=== PATIENT | male | born 1945 | race Caucasian/White ===

== ENCOUNTER 2016-05-23 13:54 | Emergency (ER) | payer OTHER ==
[~2016-05-23] VITALS: Ht 182.9 cm; Wt 118.3 kg
[~2016-05-23 13:54] MED LIST: AMLO-110 PO; ASPI81TA28 PO; CARV25TA2 PO; EFF/375 PO; FURO20TA PO; HYT2 PO; LISI-725 PO; POTA20PO5 PO; ZNTT/150 PO; [UNRECOGNIZED DRUG - CODE] PO; [UNRECOGNIZED DRUG - REMARK] PO
[2016-05-23 14:10] VITALS: TEMP 36.8; Ht 182.9 cm; Wt 118.3 kg
--- NOTE | 2016-05-23 14:25 | EMERGENCY ROOM VISIT NOTE ---
History Report prepared by Vee: Wilda Vergara Under the Supervision of: Dr. Alan Puga M.D. First contact with patient: 14:14 Chief Complaint: BACK PAIN Stated Complaint: BACK PAIN-UNABLE TO STAND STRAIGHT History of Present Illness The patient is a 70 year old male who presents to the Emergency Room with complaints of constant back pain beginning last night. The patient states that he was bending down getting his clothes out of the dryer when he felt a popping sensation in his back. The patient states that the pain radiates down into his legs. He has been taking Hydrocodone for the pain. He has a history of herniated discs and is followed by pain management. The patient denies loss of bowel or bladder function. Source of History: patient Onset: last night Position: back Timing: constant Modifying Factors (Relieving): other (Hydrocodone) Note: Patient denies loss of bowel or bladder control. He has a history of herniated disc. Review of Systems See HPI for pertinent positives & negatives. A total of 10 systems reviewed and were otherwise negative. Past Medical & Surgical Medical Problems: (1) Herniated disc Surgical Problems: (1) S/P triple vessel bypass Social History Smoking Status: Never Smoker Marital Status: Housing Status: lives with significant other Occupation Status: retired Current/Historical Medications Scheduled Amlodipine (Norvasc), 5 MG PO DAILY Aspirin (Aspirin Ec), 81 MG PO BID Carvedilol (Coreg), 25 MG PO BID Furosemide (Lasix), 40 MG PO BID Gabapentin (Neurontin), 200 MG PO QAM Gabapentin (Neurontin), 1 CAP PO HS Gabapentin (Neurontin), 200 MG PO NOON Lisinopril (Prinivil), 10 MG PO BID Potassium Ext Rel (Klor-Con), 20 MEQ PO DAILY Ranitidine (Zantac), 150 MG PO BID Terazosin HCl (Terazosin HCl), 4 MG PO HS Zolpidem Tartrate (Ambien), 5 MG PO HS [Breathing Pill], 5 MG PO QAM Scheduled PRN Oxycodone/Acetaminophen 5MG/325MG (Percocet 5MG/325MG), 1-2 TAB PO Q4H PRN for Pain Allergies Coded Allergies: No Known Allergies (Unverified , 05/23/16) Physical Exam Vital Signs Date Time Temp Pulse Resp B/P Pulse Ox O2 Delivery O2 Flow Rate FiO2 05/23/16 17:07 72 18 127/78 97 Room Air 05/23/16 16:00 69 18 130/76 96 Room Air 05/23/16 14:10 36.8 72 18 124/76 94 Room Air Physical Exam GENERAL: Patient is a healthy-appearing well-nourished HEAD: Normocephalic atraumatic EYES: Ocular movements intact pupils equal and react to light OROPHARYNX mucous membranes are moist no exudates present no erythema or edema present NECK: Supple no nuchal rigidity CHEST: Good equal expansion LUNGS: Clear and equal to auscultation CARDIAC: Normal S1 and S2 ABDOMEN: Soft nontender no guarding BACK: No CVA tenderness EXTREMITIES: No pain upon palpation normal muscle strength in all groups no clubbing cyanosis or edema. Unable to walk on tip toes or heels. NEURO: Patient is following commands is answering questions appropriately. Alert and oriented x3 Cranial Nerves 2-12 grossly intact. No saddle anesthesia, no loss of bowel or bladder control. Medical Decision & Procedures ER Provider Diagnostic Interpretation: MRI results as stated below per my review and radiologist interpretation: MRI OF THE LUMBAR SPINE WITHOUT CONTRAST CLINICAL HISTORY: Low back pain. COMPARISON STUDY: No previous studies for comparison. TECHNIQUE: Utilizing a 1.5 Tomasa magnet and dedicated coil, multiplanar, multiecho imaging of the lumbar spine was performed without IV contrast. FINDINGS: For purposes of numbering on this exam, the L5-S1 disc space is assigned to axial image 23 of 25. There is 6 mm of anterolisthesis of L3 on L4. There is no intracanalicular mass or fluid collection. The conus terminates at the mid L1 level. There are several T2 hyperintense bilateral renal lesions, the largest of which is a 6.5 cm right renal lesion. These are suboptimally assessed on this exam but may reflect cysts. L1-2: The central canal and neural foramen are patent. L2-3: The central canal and neural foramen are patent. L3-4: There is grade I anterolisthesis. There is a moderate-sized central disc protrusion. Ligamentous hypertrophy and facet arthrosis are present. These findings result in severe narrowing of the central canal and left lateral recess with mild narrowing of the right lateral recess and both neural foramen. L4-5: The central canal and neural foramen are patent L5-S1: There is a tiny central disc protrusion. The central canal and neural foramen are patent. IMPRESSION: 1. Severe central canal stenosis at L3-L4 due to a central disc protrusion, ligamentous hypertrophy and facet arthrosis. This disc herniation may be acute and likely accounts for the patient's pain. 2. Otherwise, mild multilevel degenerative changes of the lumbar spine. 3. Grade I anterolisthesis of L3 on L4, likely due to facet arthrosis. 4. Multiple bilateral renal lesions which are suboptimally assessed on this exam but may reflect cysts. Electronically signed by: Reji Mooney M.D. 05/23/2016 4:37 PM Dictated Date/Time: 05/23/2016 4:31 PM Medications Administered Medications (Trade) Dose Ordered Sig/Madhu Route Start Time Stop Time Status Last Admin Dose Admin Oxycodone/ Acetaminophen (Percocet 5/ 325MG Home Pack) 1 homepack UD STAT PO 05/23/16 16:58 05/23/16 16:59 DC 05/23/16 17:06 1 HOMEPACK ED Course 1419: Past medical records reviewed. The patient was evaluated in room B12. A complete history and physical examination was performed. 1643: I discussed MRI results with the patient. 1658: Percocet 5/325 MG Home Pack 1 homepack PO. 1700: Upon reexamination the patient is hemodynamically stable. I discussed results and treatment plan with the patient. He verbalizes agreement and understanding. The patient is ready for discharge. Medical Decision The patient is a 70 year old female who presents to the ED with complaints of back pain. Differential diagnosis: Etiologies such as musculoskeletal, disc herniation, fracture, aortic disease, metastatic disease, cord compression, discitis, infection, renal colic, gastrointestinal, acute exacerbation of chronic back pain, sciatica, cauda equina, as well as others were entertained. This is a 70-year-old male who presents emergency department complaining of back pain. Patient is refusing pain medication in the emergency department. He is able to walk on his tiptoes and his heels. He has no evidence saddle anesthesia on exam and he has no loss of bowel or bladder control. Based on the mechanism of action, the patient was sent for an MRI of his back. This is concerning for herniated disc. I believe based on the fact the patient is refusing pain medication as well as neurological exam as documented above that he can safely be discharged home. He is requesting Percocet for use at home. I did recommend that the patient returns to emergency department if he loses control of bowel or bladder also weakness.. Patient will follow-up with orthopedics and was in agreement with the treatment plan. Impression Primary Impression: Herniated disc Scribe Attestation The scribe's documentation has been prepared under my direction and personally reviewed by me in its entirety. I confirm that the note above accurately reflects all work, treatment, procedures, and medical decision making performed by me. Departure Information Dispostion Home / Self-Care Prescriptions Oxycodone/Acetaminophen 5MG/325MG (PERCOCET 5MG/325MG) Tab 1-2 TAB PO Q4H Y for Pain, #14 TAB Prov: Alan Puga MD 05/23/16 Referrals Piter Mckinley D.O. (PCP) Forms HOME CARE DOCUMENTATION FORM, IMPORTANT VISIT INFORMATION, School Instructions, Work Instructions Patient Instructions ED Disk Intervertebral Herniated, ED Neck Back Pain General, My [facility] Additional Instructions Need to return to the ED if you lose control of your bowel or bladder or are unable to walk. Follow up with DR Trejo's office this week You have been examined and treated today on an emergency basis only. This is not a substitute for, or an effort to provide, complete comprehensive medical care. It is impossible to recognize and treat all injuries or illnesses in a single emergency department visit. It is therefore important that you follow up closely with Dr Spain. Call as soon as possible for an appointment. Thank you for your time and consideration. I look forward to speaking with you again soon. Please don't hesitate to call us if you have any questions. Problem Qualifiers Primary Impression: Herniated disc Spinal region: thoracic Qualified Codes: M51.24 - Other intervertebral disc displacement, thoracic region
[2016-05-23] MEDS ORDERED: GABA1CAP PO ×2 (14:45)
[2016-05-23] MEDS ORDERED: POTA20TA16 PO (14:45)
[2016-05-23] MEDS ORDERED: LISI10TA PO (14:45)
[2016-05-23] MEDS ORDERED: ZOLP5TAB PO (14:45)
[2016-05-23] MEDS ORDERED: FURO40TA3 PO (14:45)
[2016-05-23] MEDS ORDERED: GABA400C PO (14:45)
--- NOTE | 2016-05-23 16:38 | DIAGNOSTIC IMAGING REPORT ---
MRI OF THE LUMBAR SPINE WITHOUT CONTRAST CLINICAL HISTORY: Low back pain. COMPARISON STUDY: No previous studies for comparison. TECHNIQUE: Utilizing a 1.5 Tomasa magnet and dedicated coil, multiplanar, multiecho imaging of the lumbar spine was performed without IV contrast. FINDINGS: For purposes of numbering on this exam, the L5-S1 disc space is assigned to axial image 23 of 25. There is 6 mm of anterolisthesis of L3 on L4. There is no intracanalicular mass or fluid collection. The conus terminates at the mid L1 level. There are several T2 hyperintense bilateral renal lesions, the largest of which is a 6.5 cm right renal lesion. These are suboptimally assessed on this exam but may reflect cysts. L1-2: The central canal and neural foramen are patent. L2-3: The central canal and neural foramen are patent. L3-4: There is grade I anterolisthesis. There is a moderate-sized central disc protrusion. Ligamentous hypertrophy and facet arthrosis are present. These findings result in severe narrowing of the central canal and left lateral recess with mild narrowing of the right lateral recess and both neural foramen. L4-5: The central canal and neural foramen are patent L5-S1: There is a tiny central disc protrusion. The central canal and neural foramen are patent. IMPRESSION: 1. Severe central canal stenosis at L3-L4 due to a central disc protrusion, ligamentous hypertrophy and facet arthrosis. This disc herniation may be acute and likely accounts for the patient's pain. 2. Otherwise, mild multilevel degenerative changes of the lumbar spine. 3. Grade I anterolisthesis of L3 on L4, likely due to facet arthrosis. 4. Multiple bilateral renal lesions which are suboptimally assessed on this exam but may reflect cysts. Electronically signed by: Reji Mooney M.D. 05/23/2016 4:37 PM Dictated Date/Time: 05/23/2016 4:31 PM
[2016-05-23] MEDS ORDERED: OXYC-57 PO (16:58)
[2016-05-23] MEDS ORDERED: PERCOCET HOME PACK PO STA (16:58)
[2016-05-23 17:07] VITALS: BP 127/78; PULSE 72; O2SAT 97
== END 2016-05-23 17:09 | disposition home or self-care (01) ==
LOC: C.EDB 13:56
DX: M51.26 Other intervertebral disc displacement, lumbar region (principal); N28.9 Disorder of kidney and ureter, unspecified; Z95.1 Presence of aortocoronary bypass graft